=== PATIENT | male | born 1955 | race American Indian/Alaskan Native ===

== ENCOUNTER → 2025-03-15 | Outpatient (CLI) | payer MEDICARE, MEDICAID, SELFPAY ==
--- NOTE | 2025-03-15 15:08 | XR_ITS ---
Examination: Foot, right, 3 views Technique: AP, oblique, lateral views foot, 3 views Date and time of exam: March 15, 2025 1512 hours INDICATIONS: Right foot pain beginning one week ago FINDINGS: Moderate osteoarthritis first metatarsophalangeal joint Moderate bunion deformity No fracture 6 mm erosion medial first metatarsal IMPRESSION: Erosive arthritis first metatarsophalangeal joint, differential would include osteoarthritis, gouty arthropathy, clinical correlation advised
== END | disposition home or self-care (01) ==
PROVIDERS: PCP Nurse Practitioner Family; Referring Provider Nurse Practitioner Family; Visit Provider Nurse Practitioner Family
DX: M13.871 Other specified arthritis, right ankle and foot (principal)
CPT/HCPCS: 73630